=== PATIENT | male | born 1935 | race Caucasian/White ===

== ENCOUNTER 2016-10-23 11:41 | Emergency (ER) | payer OTHER ==
[~2016-10-23] VITALS: Ht 175.3 cm; Wt 129.3 kg
[~2016-10-23 11:41] MED LIST: ACCUPRIL40 MG PO; AMLODIPINE BESY10 MG PO; ASA5UEC PO; COREG PO; CVS FISH OIL 11 EAC3 PO; GLUCOPHAGE1000 MG PO; ONE DAILY COMP1 EAC1 PO; ZOCOR 20 MG TAB20 M1 PO
[2016-10-23] MEDS ORDERED: LIDODERM 5%1 PATC1 TRANSDERM (13:32)
[2016-10-23] MEDS ORDERED: HYDROCODONE-AP1 EAC6 PO (13:32)
[2016-10-23 15:39] VITALS: BP 171/82
== END 2016-10-23 15:39 | disposition home or self-care (01) ==
LOC: ER 11:41
DX: S46.912A Strain of unspecified muscle, fascia and tendon at shoulder and upper arm level, left arm, initial encounter (principal); S60.222A Contusion of left hand, initial encounter; S20.212A Contusion of left front wall of thorax, initial encounter; I10 Essential (primary) hypertension; E11.9 Type 2 diabetes mellitus without complications; Z95.5 Presence of coronary angioplasty implant and graft; W18.30XA Fall on same level, unspecified, initial encounter; Y93.89 Activity, other specified; Y92.89 Other specified places as the place of occurrence of the external cause; Y99.9 Unspecified external cause status

== ENCOUNTER 2020-06-16 08:38 | Emergency (ER) | payer OTHER ==
[~2020-06-16] VITALS: Ht 175.3 cm; Wt 104.3 kg
[~2020-06-16 08:38] MED LIST changes: +HYDROCODONE-AP1 EAC6 PO; +LIDODERM 5%1 PATC1 TRANSDERM
[2020-06-16] MEDS ORDERED: METFORMIN HCL500 MG PO (08:51)
[2020-06-16] MEDS ORDERED: GLIPIZIDE5 MG PO (08:51)
[2020-06-16] MEDS ORDERED: BACTRIM DS TAB1 EACH PO (09:37)
[2020-06-16 10:17] VITALS: BP 160/85
== END 2020-06-16 10:18 | disposition home or self-care (01) ==
LOC: ER 08:38
DX: L02.414 Cutaneous abscess of left upper limb (principal); I10 Essential (primary) hypertension; E11.9 Type 2 diabetes mellitus without complications; Z79.899 Other long term (current) drug therapy; Z79.82 Long term (current) use of aspirin